=== PATIENT | female | born 1965 | race Caucasian/White ===

== ENCOUNTER → 2017-06-10 | Day surgery (SDC) | payer BC ==
[~2017-06-10] MED LIST: Lactated Ringers 1,000 ML IV SCH; Propofol 200 MG/20 ML SDV IV ONE
--- NOTE | 2017-06-10 18:26 | OR ---
DATE OF OPERATION: 06/10/2017 PREOPERATIVE DIAGNOSIS: SCREENING COLONOSCOPY. POSTOPERATIVE DIAGNOSIS: SCREENING COLONOSCOPY. SURGEON: Corey Little MD PROCEDURE: FULL-LENGTH COLONOSCOPY. ANESTHESIA: [employer]. COMPLICATIONS: None. SPECIMEN: None. FINDINGS: 1. Full-length colonoscopy. 2. Minimal sigmoid diverticulosis. RECOMMENDATIONS: Followup colonoscopy every 10 years. INDICATIONS: The patient was seen by Cortney Cordero, her primary physician. She elected to proceed with screening colonoscopy due to her age. DESCRIPTION OF PROCEDURE: The patient was prepped and draped, placed in the left lateral decubitus position. A lubricated Olympus colonoscope was inserted and safely and easily advanced to the cecum. Direct visualization of the ileocecal valve and appendiceal orifice was accomplished. The bowel prep was excellent. Upon withdrawal of the scope throughout the entire length of the colon, I could find no signs of any polyps, masses, ulceration, or bleeding sites. No vascular abnormalities or signs of colitis. The patient did have a few diverticula in the most distal portion of the sigmoid colon, but very minimal. No inflammatory changes associated with it. The rectal vault appeared benign. She has a very shallow rectum and could not retroflex to look at the perianal area, but upon direct withdraw, I could see no lesions. Air was suctioned as best as possible. Scope was removed. The patient was stable in recovery room. BHAVANA/RASHAD /[id number]
== END ==
LOC: CC.SDS 11:09
PROVIDERS: ATTEND Family Medicine
DX: Z12.11 Encounter for screening for malignant neoplasm of colon (principal); K57.30 Diverticulosis of large intestine without perforation or abscess without bleeding
CPT/HCPCS: J7120